=== PATIENT | female | born 1960 | race African-American/Black ===

== ENCOUNTER 2017-12-07 05:12 | Day surgery (SDC) | payer OTHER ==
[2017-12-03 14:22] VITALS: BMI 30.9
[2017-12-07] MEDS ORDERED: PROPOFOL 20 ML ONE (07:15)
[2017-12-07] MEDS ORDERED: fentaNYL CITRATE 250 MCG/5 ML VIAL ONE (07:15)
[2017-12-07] MEDS ORDERED: MIDAZOLAM HCL 2 MG/2 ML SINGLE DOSE VIAL ONE (07:15)
[2017-12-07] MEDS ORDERED: ROCURONIUM BROMIDE 50 MG/5 ML VIAL ONE (07:15)
[2017-12-07] MEDS ORDERED: PHENAZOPYRIDINE HCL 100 MG TABLET (FP) PO STA (07:24)
--- NOTE | 2017-12-07 07:24 | HP ---
History & Physical Update - History History: No Change - Physical Physical: No Change - Assessment Assessment: No Change - Plan Plan: No Change (No update on HP)
[2017-12-07] MEDS ORDERED: PHENAZOPYRIDINE HCL 100 MG TABLET (FP) ONE (07:29)
[2017-12-07] MEDS ORDERED: LACTATED RINGERS SOLUTION 1,000 ML/1,000 ML INFUS.BAG IV SCH (07:30)
[2017-12-07] MEDS ORDERED: ceFAZolin SODIUM 1 GM VIAL ONE (08:32)
[2017-12-07] MEDS ORDERED: LIDOCAINE HCL/PF 2% SDV 5ML VIAL ONE (08:35)
[2017-12-07] MEDS ORDERED: ceFAZolin SODIUM 1 GM VIAL IVPB ONE (08:35)
[2017-12-07] MEDS ORDERED: DEXAMETHASONE SOD PHOSPHATE 4 MG/1 ML VIAL ONE (08:35)
[2017-12-07] MEDS ORDERED: BUPIVACAINE HCL/PF 0.5% (5MG/ML) 10 ML VIAL IJ ONE (09:20)
[2017-12-07] MEDS ORDERED: BUPIVACAINE HCL/PF 0.5% (5MG/ML) 10 ML VIAL ONE (09:27)
[2017-12-07] MEDS ORDERED: GLYCOPYRROLATE 0.2 MG/1 ML VIAL ONE (09:48)
[2017-12-07] MEDS ORDERED: NEOSTIGMINE METHYLSULFATE 0.5 MG/ML - 10 ML MDV ONE (09:48)
[2017-12-07] MEDS ORDERED: CEFAZOLIN 2 GM/D5W 2 GM/50 ML ML IVPB SCH (10:00)
--- NOTE | 2017-12-07 10:27 | OP ---
Operative Note - Note: Operative Date: 12/07/17 Pre-Operative Diagnosis: Pelvic/abdominal pain, myomatous uterus Operation: Robotic hysterectomy with bilateral salpingectomy Post-Operative Diagnosis: Same as Pre-op Surgeon: Isabella Corey Inspector Barrel: Matthew Cabrera Anesthesiologist/BEHAVIORAL HEALTH ASSOCIATE: Mercedes Lopez Anesthesia: General Specimens Removed: Uterus and bilateral tubes Estimated Blood Loss (mls): 20 Drains, Volume Out (mls): 100 (Urine orange due to Pyridium ) Fluid Volume Replaced (mls): 1,000 Operative Report Dictated: Yes
[2017-12-07] MEDS ORDERED: IBUPROFEN 400 MG TABLET (FP) PO PRN (10:28)
--- NOTE | 2017-12-07 10:28 | SURG ---
Surgery Tube Filler Note Tube Filler: Matthew Cabrera PA-C Date of Service: 12/07/17 Diagnosis: Abdominal/pelvic, mymatous uterus Procedure: Robotic hysterectomy with bilateral salpingectomy I was present for the entirety of the operative procedure. For further detail, please refer to operative report. Visit type - Case Type Case Type: Scheduled Admission - New patient This patient is new to me today: Yes Date on this admission: 12/07/17
[2017-12-07] MEDS ORDERED: LACTATED RINGERS SOLUTION 1,000 ML IV SCH (10:30)
[2017-12-07] MEDS ORDERED: HYDROmorphone *PCA* 6MG/30ML DISP.SYRIN PCA ONE ×2 (10:41→20:32)
[2017-12-07] MEDS ORDERED: HYDROmorphone *PCA* 10MG/50ML DISP.SYRIN PCA SCH (11:45)
--- NOTE | 2017-12-07 12:33 | OP ---
DATE OF OPERATION: 12/07/2017 PREOPERATIVE DIAGNOSIS: Leiomyomatous uterus, abdominal pain. OPERATION: Laparoscopic robotic total hysterectomy and bilateral salpingectomy. POSTOPERATIVE DIAGNOSIS: Leiomyomatous uterus, abdominal pain. SURGEON: Isabella Corey MD DIRECTOR NURSES' REGISTRY: REGINALD Morrell ANESTHESIA: General. ANESTHESIOLOGIST: Dr. Ferrari ANESTHESIA: General. DESCRIPTION OF PROCEDURE: The patient was taken to the operating room and placed in dorsal lithotomy position, prepped and draped in the usual sterile fashion. A time-out was performed in accordance with hospital regulation. Specimen was placed in the vagina, and anterior lip of the cervix was grasped with a single-tooth tenaculum. The cervix was then dilated to accommodate a large VCare device. Guardado also was inserted. Attention was then drawn to the umbilicus where an 8-mm umbilical incision was made. Veress needle was inserted into the cavity. Approximately 3 -4 L of CO2 was insufflated in the cavity. Veress needle was then removed, and an 8- mm trocar was then inserted. Laparoscopic camera was attached. Two other ports were placed on the left parallel to the incision 8-10 cm apart, and an upper abdomen AirSeal cannula was inserted after a scalpel was then used to make a 5-mm incision. Two other 8-mm trocars were inserted on the right side under direct visualization parallel to the umbilical incision. The Da Martinez robot was side docked to the patient's arm, and trocars were then attached to the Da Martinez robot. After Trocars were attached Tenaculum was inserted on the right, Endo Finesse inserted on the right, vessel sealer on the left under direct visualization. Control of the console was done after trocars and instruments were positioned and found to be in good position. Attention was then drawn to the console where control of the console was then done. Tenaculum was then used to elevate the uterus. The right utero- ovarian ligament was identified, clamped, and cut. Uterine arteries were identified, clamped, and cut. The vesicular uterine reflection was then entered, and the bladder was bluntly dissected out of the operative field. Scalpel was then used to cut the vagina on the VCare device on the right side. Attention was then drawn to the left side where tenaculum was then moved, and left utero-ovarian ligament was identified, clamped, and cut using vessel sealer. Uterine arteries were clamped and cut using vessel sealer, and vesicular reflection was bluntly dissected down. The bladder was bluntly dissected off the operative field. Cardinal ligament was identified, clamped, and cut. Vagina was then cut, and circumferential incision was made, and cervix was removed from the vagina using entered sharply. The uterus was then removed. Tubes were bilaterally grasped and coagulated and cut using vessel sealer, and tubes were removed from the vagina. Hemostasis was achieved. Both ureters were identified after the uterus was removed with peristalsis. The tubal suture was then passed into the abdomen, and vaginal cuff was then closed in a continuous fashion. Hemostasis was achieved. Ureters were then identified and found to have peristalsis. Hemostasis was achieved. Needle was removed. Old pedicles were checked and found to be hemostatic. The ureters were identified again and felt to be with peristalsis. All instruments were then removed. CO2 was removed from the abdomen. Incisions were then closed using 4-0 Biosyn suture in subcuticular fashion. Wound was washed and dressed. Hemostasis was achieved. Estimated blood loss was 50 mL. Shaista [id number] TERESA
[2017-12-07] MEDS: HYDROmorphone *PCA* 6MG/30ML DISP.SYRIN PCA SCH ×2 (13:31→20:54)
[2017-12-07] MEDS: CEFAZOLIN 2 GM/D5W 2 GM/50 ML ML IVPB SCH (15:32)
[2017-12-07] MEDS: ONDANSETRON 4 MG/2 ML VIAL IVPUSH PRN (18:16)
[2017-12-07 18:19] LABS: ANION GAP 9 (8-16); BLOOD UREA NITROGEN 11 mg/dL (7-18); CHLORIDE 106 mmol/L (98-107); CO2 23 mmol/L (21-32); CREATININE 0.7 mg/dL (0.55-1.02); GLUCOSE,RANDOM 136 mg/dL (74-106); SODIUM 138 mmol/L (136-145)
[2017-12-07 18:20] LABS: POTASSIUM 4.7 mmol/L (3.5-5.1)
[2017-12-07 19:42] LABS: BASO % 0.1 % (0-2.0); HEMOGLOBIN 14.4 GM/dL (10.7-15.3); LYMPH % 7.2 % (8-40); MCH 29.1 pg (25.7-33.7); MCHC 35.9 g/dl (32.0-36.0); MEAN PLT VOLUME 8.7 fl (7.5-11.1); MONO % 2.2 % (3.8-10.2); NEUT % 90.5 % (42.8-82.8); PLATELET COUNT 191 K/MM3 (134-434); RBC 4.94 M/mm3 (3.60-5.2); RDW 13.3 % (11.6-15.6); WHITE BLOOD COUNT 10.2 K/mm3 (4.0-10.0)
[2017-12-07] MEDS ORDERED: PCA PUMP KEY 1 EACH EACH ONE (20:34)
[2017-12-08] MEDS: CEFAZOLIN 2 GM/D5W 2 GM/50 ML ML IVPB SCH (00:09)
[2017-12-08] MEDS ORDERED: oxyCODONE HCL 5 MG TABLET PO PRN (07:25)
[2017-12-08] MEDS ORDERED: BISACODYL 10 MG SUPP.RECT RC PRN (07:29)
[2017-12-08] MEDS ORDERED: PCA PUMP KEY 1 EACH EACH ONE (07:50)
--- NOTE | 2017-12-08 07:52 | DS ---
Physical Exam: SUBJECTIVE: Patient seen and examined. No acute events since surgery per RN notes. Resting comfortably. C/o mild incisional tenderness. Adequate pain control via prn meds. Passed flatus. Tolerating regular diet. Voiding spontaneously. Ambulating unassisted. OBJECTIVE: Vital Signs Temperature 98.4 F 12/08/17 06:00 Pulse Rate 62 12/08/17 06:00 Respiratory Rate 20 12/08/17 06:00 Blood Pressure 103/61 12/08/17 06:00 O2 Sat by Pulse Oximetry (%) 100 12/07/17 21:00 PHYSICAL EXAM GENERAL: The patient is awake, alert, and fully oriented, in no acute distress. NECK: Trachea midline, full range of motion, supple. LUNGS: CTA bilat anteriorly HEART: RRR ABDOMEN: all surgical ports intact. no hematoma. + bs x4 EXTREMITIES: 2+ pulses, warm, well-perfused, no edema. PSYCH: Normal mood, normal affect. SKIN: Warm, dry, normal turgor, no rashes or lesions noted. LABS CBC,CMP WBC 10.2 K/mm3 (4.0-10.0) H D 12/07/17 17:35 RBC 4.94 M/mm3 (3.60-5.2) 12/07/17 17:35 Hgb 14.4 GM/dL (10.7-15.3) 12/07/17 17:35 Hct 40.0 % (32.4-45.2) 12/07/17 17:35 MCV 81.0 fl (80-96) 12/07/17 17:35 MCH 29.1 pg (25.7-33.7) 12/07/17 17:35 MCHC 35.9 g/dl (32.0-36.0) 12/07/17 17:35 RDW 13.3 % (11.6-15.6) 12/07/17 17:35 Plt Count 191 K/MM3 (134-434) 12/07/17 17:35 MPV 8.7 fl (7.5-11.1) D 12/07/17 17:35 Neutrophils % 90.5 % (42.8-82.8) H D 12/07/17 17:35 Lymphocytes % 7.2 % (8-40) L D 03/12/18 17:35 Monocytes % 2.2 % (3.8-10.2) L 12/07/17 17:35 Eosinophils % 0.0 % (0-4.5) D 12/07/17 17:35 Basophils % 0.1 % (0-2.0) 12/07/17 17:35 Sodium 138 mmol/L (136-145) 12/07/17 17:35 Potassium 4.7 mmol/L (3.5-5.1) 12/07/17 17:35 Chloride 106 mmol/L (98-107) 12/07/17 17:35 Carbon Dioxide 23 mmol/L (21-32) 12/07/17 17:35 Anion Gap 9 (8-16) 12/07/17 17:35 BUN 11 mg/dL (7-18) 12/07/17 17:35 Creatinine 0.7 mg/dL (0.55-1.02) 12/07/17 17:35 Random Glucose 136 mg/dL (74-106) H 12/07/17 17:35 Calcium 8.0 mg/dL (8.5-10.1) L 12/07/17 17:35 HOSPITAL COURSE: Date of Admission:12/07/17 Date of Discharge: 12/08/17 The patient was admitted to the Med-Surg Unit s/p robotic hysterectomy with bilat salpingectomy. POD #1 the patient ambulated the hallways without assistance. Her rocha cath was removed and passed her trial of void. Narcotic and non-narcotic pain management control was achieved with an oral and IV approach. Milli-operative IV ABX were administered. DVT prophylaxis was achieved with SCDs and early ambulation. Narcotic scripts and or muscle relaxants were checked with [facility] prior to escribe. The discharge instructions and an oral pain management plan were reviewed with the patient. All questions answered. Above plan discussed with Dr. Corey and agreed. Minutes to complete discharge: 15 Visit type - Case Type Case Type: Scheduled Admission - New patient This patient is new to me today: Yes Date on this admission: 12/08/17
[2017-12-08] MEDS: ONDANSETRON 4 MG/2 ML VIAL IVPUSH PRN (08:08)
[2017-12-08 08:35] LABS: BASO % 0.2 % (0-2.0); EOS % 0.2 % (0-4.5); HEMATOCRIT 38.4 % (32.4-45.2); HEMOGLOBIN 13.5 GM/dL (10.7-15.3); LYMPH % 20.9 % (8-40); MCH 28.8 pg (25.7-33.7); MCHC 35.1 g/dl (32.0-36.0); MEAN CELL VOLUME 81.9 fl (80-96); MEAN PLT VOLUME 7.9 fl (7.5-11.1); MONO % 5.9 % (3.8-10.2); NEUT % 72.8 % (42.8-82.8); PLATELET COUNT 192 K/MM3 (134-434); RBC 4.69 M/mm3 (3.60-5.2); RDW 13.6 % (11.6-15.6); WHITE BLOOD COUNT 11.3 K/mm3 (4.0-10.0)
[2017-12-08 08:53] LABS: ANION GAP 11 (8-16); BLOOD UREA NITROGEN 10 mg/dL (7-18); CALCIUM 8.9 mg/dL (8.5-10.1); CHLORIDE 100 mmol/L (98-107); CO2 29 mmol/L (21-32); CREATININE 0.8 mg/dL (0.55-1.02); GLUCOSE,RANDOM 108 mg/dL (74-106); POTASSIUM 4.1 mmol/L (3.5-5.1); SODIUM 140 mmol/L (136-145)
[2017-12-08] MEDS ORDERED: PRENATAL VITAMINS W/ FOLIC ACID TABLET (FP) PO SCH (10:00)
[2017-12-08] MEDS ORDERED: ENOXAPARIN NA (PORCINE) 40 MG/0.4 ML DISP.SYRIN SQ SCH (10:00)
[2017-12-08] MEDS: oxyCODONE HCL 5 MG TABLET PO PRN ×2 (10:16→14:19)
--- NOTE | 2017-12-08 11:43 | PN ---
Progress Note (short form) - Note Progress Note: POD #1 - s/p robotic assisted laparoscopic hysterectomy under general anesthesia with dilaudid STEREO MAP PLOTTER OPERATOR for postop pain management. VSS. Pt. doing well, resting comfortably in bed. No complaints. Good pain control. No apparent anesthetic complications noted. STEREO MAP PLOTTER OPERATOR discontinued earlier this morning in anticipation of discharge.
[2017-12-08 14:29] VITALS: BP 116/70; PULSE 75; TEMP 98.7
== END 2017-12-08 15:25 | disposition home or self-care (01) ==
LOC: JASU-SURG 05:12 → JASUSAT 05:12 → J3W 12:55 → JASUSAT 12-08 15:25
PROVIDERS: ATTEND Obstetrics & Gynecology
PROC: 0UT7FZZ Resection of Bilateral Fallopian Tubes, Via Natural or Artificial Opening With Percutaneous Endoscopic Assistance (ICD-10-PCS; 2017-12-07)
PROC: 8E0W4CZ Robotic Assisted Procedure of Trunk Region, Percutaneous Endoscopic Approach (ICD-10-PCS; 2017-12-07)
PROC: 0UT9FZZ Resection of Uterus, Via Natural or Artificial Opening With Percutaneous Endoscopic Assistance (ICD-10-PCS; principal; 2017-12-07 07:30)
PROC: 0UT2FZZ Resection of Bilateral Ovaries, Via Natural or Artificial Opening With Percutaneous Endoscopic Assistance (ICD-10-PCS; 2017-12-07 07:30)
DX: D39.0 Neoplasm of uncertain behavior of uterus (principal); R10.9 Unspecified abdominal pain
CPT/HCPCS: 58552; S2900; 36415; 80048; 85025; 87070; 87205; 88302-TC; 88307-TC; 94760; J1170

== ENCOUNTER 2020-04-24 08:00 | Inpatient (IN) | payer OTHER ==
--- NOTE | 2020-04-24 08:02 | HP ---
Satellite [facility] - Chief Complaint Chief Complaint: right hip pain - Past Medical History Allergies/Adverse Reactions: Allergies Allergy/AdvReac Type Severity Reaction Status Date / Time No Known Drug Allergies Allergy Verified 04/17/20 13:28 ...LMP: 03/15/13 - Current Medications Current Medications: Home Medications Medication Instructions Recorded Ascorbate Calcium [Vitamin C] 500 mg PO DAILY 04/17/20 Multivitamins [Tab-A-Vit -] 1 tab PO DAILY 04/17/20 Sambucus Elderberry 1 tab PO DAILY 04/17/20 Satellite Physical Exam - Physical Examination General Appearance: Well Nourished, Well Developed, Alert & Oriented x3 ENT: Clear Lung: Normal air movement Extremities: Other (right hip - +ttp, decr rom, nvi, xrays show grade 4 hip djd) Neurological: Intact, Alert, Oriented Satellite Impression/Plan - Impression/Plan Impression: right hip djd Operative Procedure: right khushbu thr Date to be Performed: 04/24/20
[2020-04-24] MEDS ORDERED: BUPIVACAINE HCL/PF 0.5% (5MG/ML) 10 ML VIAL ONE ×2 (09:11→10:29)
[2020-04-24] MEDS ORDERED: LIDOCAINE HCL/PF 2% SDV 5ML VIAL ONE (09:11)
[2020-04-24] MEDS ORDERED: MIDAZOLAM HCL 2 MG/2 ML SINGLE DOSE VIAL ONE ×2 (09:13)
[2020-04-24 09:22] VITALS: BMI 31.7
[2020-04-24] MEDS: CELECOXIB 200 MG CAPSULE PO ONE ×2 (09:40→13:54)
[2020-04-24] MEDS ORDERED: VANCOMYCIN 1,000 MG VIAL (RESTRICTED TO ID ONLY) ONE (09:57)
[2020-04-24] MEDS ORDERED: ceFAZolin SODIUM 1 GM VIAL ONE ×2 (09:57→18:16)
[2020-04-24] MEDS ORDERED: TRANEXAMIC ACID 1000 MG/10 ML VIAL ONE (11:00)
[2020-04-24] MEDS ORDERED: ONDANSETRON 4 MG/2 ML VIAL ONE (11:00)
[2020-04-24] MEDS ORDERED: TRANEXAMIC ACID 1000 MG/10 ML VIAL IVPUSH ONE (11:00)
[2020-04-24] MEDS ORDERED: CEFAZOLIN 2 GM in DEXTROSE 5%-WATER - 50 ML IVPB ONE (11:00)
[2020-04-24] MEDS ORDERED: ONDANSETRON 4 MG/2 ML VIAL IVPUSH PRN ×2 (11:34→12:10)
[2020-04-24] MEDS ORDERED: oxyCODONE HCL 5 MG TABLET PO PRN (11:35)
[2020-04-24] MEDS ORDERED: LACTATED RINGERS SOLUTION 1,000 ML IV SCH ×2 (11:45→12:15)
[2020-04-24] MEDS ORDERED: VANCOMYCIN 1,000 MG VIAL (RESTRICTED TO ID ONLY) IVPB ONE (12:03)
[2020-04-24] MEDS ORDERED: MAGNESIUM HYDROX 2400MG/30ML ORAL SUSPENSION 30 ML CUP PO PRN (12:10)
[2020-04-24] MEDS ORDERED: MAG HYDROX/AL HYDROX/SIMETH 30 ML UNIT-DOSE CUP PO PRN (12:10)
--- NOTE | 2020-04-24 12:12 | OP ---
Operative Note - Note: Operative Date: 04/24/20 (gracy) Pre-Operative Diagnosis: right hip djd Operation: right khushbu thr Post-Operative Diagnosis: Same as Pre-op Surgeon: Peter Quintero [facility] Coordinator: Tylor Hoskins Anesthesia: Spinal, Local Specimens Removed: femoral head Estimated Blood Loss (mls): 150
[2020-04-24] MEDS: ACETAMINOPHEN 325 MG TABLET (FP) PO SCH ×3 (13:20→19:34)
[2020-04-24] MEDS ORDERED: ACETAMINOPHEN 325 MG TABLET (FP) ONE (13:21)
[2020-04-24] MEDS ORDERED: DEXTROSE 5%-WATER 100 ML IVPB ONE (18:16)
[2020-04-24] MEDS ORDERED: CEFAZOLIN 3 GM in DEXTROSE 5%-WATER 100 ML IVPB SCH (19:00)
[2020-04-24] MEDS: CEFAZOLIN 3 GM in DEXTROSE 5%-WATER - 100 ML IVPB SCH (19:36)
[2020-04-24] MEDS: oxyCODONE HCL 10 MG SUSTAINED ACTING TABLET PO SCH (21:05)
[2020-04-24] MEDS: SENNOSIDES/DOCUSATE COMBO (SENNA PLUS) TABLET (UD) PO SCH (21:05)
[2020-04-24] MEDS: oxyCODONE HCL 5 MG TABLET PO PRN (21:06)
[2020-04-25] MEDS: oxyCODONE HCL 5 MG TABLET PO PRN ×3 (00:06→20:15)
[2020-04-25] MEDS: CEFAZOLIN 3 GM in DEXTROSE 5%-WATER - 100 ML IVPB SCH ×2 (03:01→12:10)
[2020-04-25] MEDS: ACETAMINOPHEN 325 MG TABLET (FP) PO SCH ×4 (04:32→20:15)
[2020-04-25 07:48] LABS: HEMATOCRIT 38.4 % (32.4-45.2); HEMOGLOBIN 13.3 GM/dl (10.7-15.3); MCH 28.8 pg (25.7-33.7); MCHC 34.7 g/dl (32.0-36.0); MEAN CELL VOLUME 82.9 fl (80-96); MEAN PLT VOLUME 8.3 fl (7.5-11.1); PLATELET COUNT 216 K/MM3 (134-434); RBC 4.63 M/mm3 (3.60-5.2); RDW 12.6 % (11.6-15.6); WHITE BLOOD COUNT 12.2 K/mm3 (4.0-10.8)
[2020-04-25] MEDS: ASPIRIN 325 MG TABLET PO SCH (08:15)
[2020-04-25] MEDS: oxyCODONE HCL 10 MG SUSTAINED ACTING TABLET PO SCH ×2 (10:46→21:50)
[2020-04-25] MEDS: SENNOSIDES/DOCUSATE COMBO (SENNA PLUS) TABLET (UD) PO SCH ×2 (10:47→21:50)
[2020-04-25] MEDS: PANTOPRAZOLE 40 MG TABLET PO SCH (10:47)
[2020-04-25] MEDS: MULTIVITAMINS (DAILY MVI) TABLET (FP) PO SCH (10:47)
--- NOTE | 2020-04-25 11:02 | PN ---
Progress Note (short form) - Note Progress Note: Ortho Pt seen and examined s/p right khushbu thr pod #1 Selected Entries 04/25/20 06:00 Temperature 98.0 F Pulse Rate 68 Respiratory 18 Rate Blood Pressure 105/62 Laboratory Tests 04/25/20 07:05 WBC 12.2 H Hgb 13.3 Hct 38.4 Plt Count 216 dressing c/d/i, calf soft, nt, nvi a/p PT hip precautions dvt ppx pain control d/c home tomorrow if stable
--- NOTE | 2020-04-25 12:35 | SPEC ---
DATE OF OPERATION: 04/24/2020 PREOPERATIVE DIAGNOSIS: Degenerative joint disease right hip. POSTOPERATIVE DIAGNOSIS: Degenerative joint disease right hip. PROCEDURE PERFORMED: Right total hip replacement with robotic-assisted navigation (MAKOplasty). SURGICAL ATTENDING: Peter Quintero MD RN CASE MGR: REGINALD Saravia ANESTHESIA: Regional and spinal. CLOSURE: An Tomas total hip system with a press-fit 52-mm Trident II acetabular shell, a number 5 Accolade II press-fit femoral stem, and a +2.5 36-mm ceramic femoral head. Number 1 Vicryl for fascia, 2-0 for subcutaneous, 3-0 V-Loc for skin, 4-0 undyed Vicryl for pin sites. ESTIMATED BLOOD LOSS: Negligible. COMPLICATIONS: None. CONDITION: To the recovery room in stable condition. DESCRIPTION OF PROCEDURE: The patient was taken to the operating room on April 24, 2020. General and regional anesthesia was administered by the anesthesiologist. IV Kefzol and TXA were administered prophylactically prior to the case. The patient was placed in the lateral decubitus position will all prominences well-padded. The right hip area was prepped and draped in the usual sterile fashion. Using 3 small stab incisions over the iliac crest, 3 threaded pins were drilled in power fashion through the 2 tables of the crest. These pins were fastened and the navigation array for the Mark navigation system. Next, a 12 to 15-cm curved longitudinal incision over the posterolateral aspect of the greater trochanter was incised. Hemostasis was achieved with Bovie cautery. Sharp dissection was carried down to level of the fascia. The fascia was opened the entire length of the incision, spreading the fibers of the gluteus janelle in the direction of origin. A Charnley retractor was placed in this layer. Care was taken not to impale the sciatic nerve. The short external rotators were detached off the insertion of the greater trochanter and peeled off the capsule. A posterior capsulotomy was then performed. A check point was malleted into the greater trochanter and a point on the inferior pole of the patella was obtained as well. These 2 points were used to assess the preoperative offset and limb lengths of the hip. The hip was then dislocated. The femoral neck was then osteotomized down to the appropriate level as directed by the navigation device. Anterior and posterior retractors were placed, exposing the acetabulum. A circumferential labral excision was performed. A check point was malleted into the acetabulum as well. Multiple sites inside the acetabulum and around the rim were utilized to register the acetabulum with the navigation device. An excellent registration of less than 0.5 mm was obtained. The hip was then reamed with the appropriate reamer down to the appropriate depth, with the appropriate orientation and version as assessed on our preoperative plan for this patient. The reamer was removed and the acetabulum was inspected to have good bleeding surfaces throughout. The real acetabular cup was then malleted down into place, with the holes in the appropriate position, until an excellent fixation was obtained. No screws were necessary. The navigation device ensured appropriate orientation and version, with the depth as predetermined. The appropriate liner was then clipped into place. Attention was directed to the femur. The proximal femur was prepared by use a box chisel, a canal finder and serial broaches until the broach achieved excellent rigidity in the proximal femur with the appropriate version being applied. A calcar planer was used to smooth off the calcar flush with the trial components. A trial reduction with the appropriate head was done, and the hip was reduced. The hip was taken through a range of motion from full extension with external rotation to marked flexion, and was stable at 90 degrees of flexion. It was stable to marked abduction and internal rotation, with a positive hang test and negative telescoping. Limb lengths were ascertained visually as well as with the navigation device to be within the targeted range for this patient. The trial component was removed. The real component was then malleted into place. The head was cold welded to the trunnion, and the hip was reduced. Range of motion, stability and limb lengths were as described in the trial component. Then the hip was pulse antibiotic irrigated. Vancomycin powder was placed in the hip joint. The capsule was closed. The fascia was then closed as well using number 1 Vicryl interrupted suture, 0 and 2-0 subcutaneous, and 3-0 V-Loc for the skin. 4-0 undyed Vicryl was used to close the pin sites after the pins were removed. All check points were also removed. Sterile Aquacel dressing was applied. The patient was awakened from anesthesia and transferred into the supine position. Bilateral SCDs and an abduction pillow were placed. X-rays revealed excellent position of the components. The patient was transferred to the recovery room in stable condition, with no complications. Estimated blood loss was less than 100 mL. Shaista [id number]
--- NOTE | 2020-04-25 14:10 | PN ---
Progress Note (short form) - Note Progress Note: Anesthesia postop note 59 y/o F s/p spinal anesthesia and pnb for right khushbu hip POD#1, vss, aaox3, pain well controlled, ambulating. No anesthesia complications.
--- NOTE | 2020-04-25 17:49 | PATH ---
Surgical Pathology Report Patient Name: FRANCISCO SOLIMAN Med. Rec. #: [id number] /Age/Gender: 1960 (Age: 59) / F Account: [id number] Location: [facility] MED-SURG Taken: 04/24/2020 Received: 04/24/2020 Reported: 04/25/2020 Physicians: Peter Quintero M.D. Specimen(s) Received RIGHT FEMORAL HEAD Clinical History Right hip osteoarthritis Final Diagnosis BONE, FEMORAL HEAD, RIGHT, TOTAL HIP REPLACEMENT MAKOPASTY: BONE WITH DEGENERATIVE JOINT DISEASE. Electronically Signed Anette Eubanks M.D. Gross Description Received in formalin, labeled "right femoral head," is a 4.5 cm. femoral head with 0.5 cm femoral neck. The margin of resection is smooth. Focal areas of eburnation and measuring 2.5 x 2 cm are identified. The remaining articular surface is smooth. The underlying trabecular bone is yellow and hard. A personal banking representative section is submitted in one cassette, following decalcification. MLSZ/04/24/2020 sanheather/04/24/2020
[2020-04-25 21:50] VITALS: BP 118/64; PULSE 93; TEMP 99
[2020-04-26] MEDS: ACETAMINOPHEN 325 MG TABLET (FP) PO SCH ×2 (03:04→08:05)
[2020-04-26] MEDS: oxyCODONE HCL 5 MG TABLET PO PRN ×2 (05:58→09:52)
[2020-04-26 07:40] LABS: HEMATOCRIT 36.8 % (32.4-45.2); HEMOGLOBIN 12.5 GM/dl (10.7-15.3); MCH 28.3 pg (25.7-33.7); MEAN CELL VOLUME 83.3 fl (80-96); MEAN PLT VOLUME 8.2 fl (7.5-11.1); PLATELET COUNT 193 K/MM3 (134-434); RBC 4.42 M/mm3 (3.60-5.2); RDW 12.3 % (11.6-15.6); WHITE BLOOD COUNT 9.8 K/mm3 (4.0-10.8)
[2020-04-26] MEDS: ASPIRIN 325 MG TABLET PO SCH (08:00)
--- NOTE | 2020-04-26 08:11 | PN ---
Progress Note (short form) - Note Progress Note: Ortho Pt seen and examined s/p right khushbu thr pod #2 Selected Entries 04/25/20 21:47 Temperature 99.0 F Pulse Rate 93 H Respiratory 18 Rate Blood Pressure 118/64 Laboratory Tests 04/26/20 06:56 WBC 9.8 Hgb 12.5 Hct 36.8 Plt Count 193 dressing c/d/i, calf soft, nt, nvi a/p PT hip precautions dvt ppx pain control d/c home today f/u in 1 week
--- NOTE | 2020-04-26 08:12 | DS ---
Physical Examination Vital Signs: Vital Signs Temperature 99.0 F 04/25/20 21:47 Pulse Rate 93 H 04/25/20 21:47 Respiratory Rate 18 04/26/20 07:41 Blood Pressure 118/64 04/25/20 21:47 O2 Sat by Pulse Oximetry (%) 99 04/26/20 07:41 Labs: CBC, BMP 04/26/20 06:56 Discharge Summary Problems reviewed: Yes Reason For Visit: OSTEOARTHRITIS Procedures: Principal: right thr Hospital Course: admitted for elective right khushbu thr, post-op per protocol, stable for d/c Condition: Good - Instructions Diet, Activity, Other Instructions: Post-op Instructions-Total Hip Replacement Call the office for a follow-up appointment in 1 week - [phone] Aspirin 325mg daily for 6 weeks. Pain medication was sent into your pharmacy. Apply Graduated Compression Stockings (TEDs) to both lower extremities- remove daily for hygiene ONLY Apply Sequential Compression Device (SCDs) to both Lower extremities remove for PT and hygiene ONLY Apply cold packs to affected area for 15 minutes every 2 hours. Physical Therapist will come to your home for the first 5 days. You will be set up with outpatient PT at your first post-operative visit. Patient may ambulate as tolerated-encourage self care (at least every 2-3 hours while awake) with walker or cane Maintain Aquacel (waterproof) dressing to operative wound (will be removed by surgeon at first office visit) Shower with Aquacel dressing in place-if Aquacel integrity compromised, remove and apply dry sterile dressing and notify Orthopedist. DO NOT SHOWER unless Orthopedists approves without Aquacel dressing CONTACT THE OFFICE FOR ANY CHANGE IN YOUR CONDITION (for example-fever greater than 102 degrees, excessive bleeding from operative site, purulent drainage, severe swelling or pain) GO TO THE EMERGENCY ROOM IF THERE IS A MEDICAL EMERGENCY Hip Precautions: * Keep a rolled towel under affected heel while in bed or chair (to keep knee in extension) * Dependent upon approach: * Posterior - do not cross legs; do not sit on low chairs or toilet s. * If you have any questions, please do not hesitate to call the office - [phone]. Referrals: Peter Quintero MD [Staff Physician] - Disposition: VNS/HOME HEALTH CARE - Home Medications Comprehensive Discharge Medication List: Ambulatory Orders Ascorbate Calcium [Vitamin C] 500 mg PO DAILY 04/17/20 Elderberry Fruit and Flower [Black Elderberry 575 mg Cap] 1 each PO DAILY 04/17/20 Multivitamins [Multivit ([facility] Formulary)] 1 tab PO DAILY 04/17/20 Acetaminophen [Tylenol .Extra-Strength -] 1,000 mg PO Q6H PRN 04/24/20 Aspirin [ASA -] 325 mg PO DAILY@0800 tablet 04/25/20 Oxycodone HCl/Acetaminophen [Percocet 5-325 mg Tablet -] 1 - 2 tab PO Q6H #50 tab MDD 8 04/25/20
[2020-04-26] MEDS: MULTIVITAMINS (DAILY MVI) TABLET (FP) PO SCH (09:51)
[2020-04-26] MEDS: oxyCODONE HCL 10 MG SUSTAINED ACTING TABLET PO SCH (09:51)
[2020-04-26] MEDS: SENNOSIDES/DOCUSATE COMBO (SENNA PLUS) TABLET (UD) PO SCH (10:00)
[2020-04-26] MEDS: PANTOPRAZOLE 40 MG TABLET PO SCH (10:05)
[2020-04-26] MEDS ORDERED: PT OWN MED DRAWER 7, Y5N ONE (10:56)
== END 2020-04-26 13:15 | disposition home health service (06) | DRG 470 ==
LOC: FM/S 08:43
PROVIDERS: ADMIT Orthopaedic Surgery; ATTEND Orthopaedic Surgery
PROC: 8E0Y0CZ Robotic Assisted Procedure of Lower Extremity, Open Approach (ICD-10-PCS; 2020-04-24)
PROC: 0SR90JA Replacement of Right Hip Joint with Synthetic Substitute, Uncemented, Open Approach (ICD-10-PCS; principal; 2020-04-24 11:10)
DX: M16.11 Unilateral primary osteoarthritis, right hip (principal)
CPT/HCPCS: 36415; 73502-TC-RT-FY; 85027; 88305-TC; 88311-TC; 94760; 97010-GP; 97116-GP; 97163-GP